=== PATIENT | female | born 1985 | race Caucasian/White ===

== ENCOUNTER 2016-07-01 15:04 | Emergency (ER) | payer MEDICAID, OTHER, SELFPAY ==
[2016-07-01] MEDS ORDERED: Sodium Chloride 0.9% 1,000 ML IV ONE (15:46)
[2016-07-01] MEDS ORDERED: Sodium Chloride 0.9% 10 ML Syringe FLUSH PRN (15:46)
[2016-07-01] MEDS ORDERED: Metoclopramide 10 MG/2 ML SDV IVPUSH ONE (15:47)
[2016-07-01] MEDS ORDERED: Ketorolac 30 MG/ML SDV IVPUSH ONE (15:47)
--- NOTE | 2016-07-01 17:00 | EDM.PDOC ---
ED HPI GENERAL MEDICAL PROBLEM - General Stated Complaint: MIGRAINE Time Seen by Provider: 07/01/16 16:00 Source of Information: Reports: Patient History Limitations: Reports: No limitations - History of Present Illness INITIAL COMMENTS - FREE TEXT/NARRATIVE: c/o UMANZRO since 8:30 AM a lot of drama with crying out in a loud voice for 20 minutes, put in a room right away, promptly fell asleep after being given 10 mg Reglan IV and 30 mg Toradol IV, IVFs are currently running has frequent ED visits with HAs - Related Data Allergies Allergy/AdvReac Type Severity Reaction Status Date / Time erythromycin base Allergy Itching Verified 05/30/16 23:20 [Erythromycin Base] tramadol Allergy Respiratory Verified 05/30/16 23:20 Depression Home Meds: Home Meds NK [No Known Home Meds] 04/20/16 [History] Past Medical History - Past Health History Medical/Surgical History: Denies Medical/Surgical History HEENT History: Reports: Impaired vision [employer] History: Reports: Musculoskeletal History: Reports: Back pain, chronic Neurological History: Reports: Seizure Other Neuro History: states having 8 year hx of seizures, takes no meds, says she was here 2 weeks ago with same thing. PSEUDOSEIZURES Psychiatric History: Reports: Addiction, Anxiety, Depression, Psych Hospitalization(s), Suicide attempt Dermatologic History: Reports: Other (see below) Other Dermatologic History: has acne on face - Infectious Disease History Infectious Disease History: Reports: Chicken pox - Past Surgical History HEENT Surgical History: Reports: Eye surgery, Tonsillectomy Other HEENT Surgeries/Procedures: L eye surgery Musculoskeletal Surgical History: Reports: None Social & Family History - Family History Family Medical History: Noncontributory - Tobacco Use Smoking Status *Q: Current Every Day Smoker Years of Tobacco use: 14 Packs/Tins Daily: 1 Used Tobacco, but Quit: No Second Hand Smoke Exposure: Yes - Alcohol Use Days Per Week of Alcohol Use: 2 Number of Drinks Per Day: 4 Total Drinks Per Week: 8 - Recreational Drug Use Recreational Drug Use: Yes Drug Use in Last 12 Months: Yes Recreational Drug Type: Reports: Marijuana/Hashish Recreational Drug Use Frequency: Weekly Recreational Drug Last Use: last week - Living Situation & Occupation Living situation: Reports: Occupation: unemployed ED ROS GENERAL - Review of Systems Review Of Systems: See Below Constitutional: Reports: no symptoms HEENT: Reports: No symptoms Respiratory: Reports: no symptoms Cardiovascular: Reports: No symptoms Endocrine: Reports: no symptoms GI/Abdominal: Reports: No symptoms : Reports: no symptoms Musculoskeletal: Reports: no symptoms Skin: Reports: no symptoms Neurological: Reports: headache Psychiatric: Reports: Agitation Hematologic/Lymphatic: Reports: no symptoms Immunologic: Reports: no symptoms ED EXAM, GENERAL - Physical Exam Exam: See Below Exam Limited By: No limitations General Appearance: alert, WD/WN, no apparent distress, other (sleeping quietly) Eye Exam: bilateral eye: normal inspection Ears: normal external exam Nose: normal inspection Head: atraumatic, normocephalic Neck: normal inspection, other (no LNs) Respiratory/Chest: no respiratory distress, lungs clear, normal breath sounds, no accessory muscle use Cardiovascular: regular rate, rhythm, no edema, no rub GI/Abdominal: soft, non tender, no distention Back Exam: normal inspection, full range of motion Extremities: normal inspection, normal range of motion, normal capillary refill Psychiatric: anxious Skin Exam: Warm, Dry, Intact, Normal color, No rash Lymphatic: no adenopathy Course - Orders/Labs/Meds Orders: Active Orders 24 hr Category Date Time Status Sodium Chloride 0.9% [Saline Flush] Med 07/01/16 15:46 Active 10 ml FLUSH ASDIRECTED PRN Saline Lock Insert [OM.PC] Routine Oth 07/01/16 15:46 Ordered Medication Orders Sodium Chloride (Saline Flush) 10 ml FLUSH ASDIRECTED PRN PRN Reason: Keep Vein Open Meds: Medications Generic Name Dose Route Start Last Admin Trade Name Freq PRN Reason Stop Dose Admin Sodium Chloride 10 ml 07/01/16 15:46 Saline Flush FLUSH ASDIRECTED PRN Keep Vein Open Discontinued Medications Generic Name Dose Route Start Last Admin Trade Name Freq PRN Reason Stop Dose Admin Sodium Chloride 1,000 mls @ 999 mls/hr 07/01/16 15:46 07/01/16 16:35 Normal Saline IV 07/01/16 16:46 999 mls/hr .BOLUS ONE Administration Ketorolac Tromethamine 30 mg 07/01/16 15:47 07/01/16 16:35 Toradol IVPUSH 07/01/16 15:48 30 mg ONETIME ONE Administration Metoclopramide HCl 10 mg 07/01/16 15:47 07/01/16 16:35 Reglan IVPUSH 07/01/16 15:48 10 mg ONETIME ONE Administration Departure - Departure Time of Disposition: 17:03 Disposition: Home, Self-Care 01 Condition: good Clinical Impression: Head ache Qualifiers: Headache type: tension-type Headache chronicity pattern: chronic headache Intractability: not intractable Qualified Code(s): G44.229 - Chronic tension- type headache, not intractable Additional Instructions: Rest. Use ice packs for 15 minutes for recurrent headache. Take ibuprofen 200 mg 3 tabs and acetaminophen 325 mg 2 tabs every 6 hours for 4 doses to prevent rebound headache. Call your Physician or Return to Emergency Department if: * Your condition worsens in any way. * You develop fever greater than 100.4. * You have vomitting that does not stop with medications. * You have pain that is not controlled with medications. - My Orders Last 24 Hours: My Active Orders 07/01/16 15:46 Sodium Chloride 0.9% [Saline Flush] 10 ml FLUSH ASDIRECTED PRN Saline Lock Insert [OM.PC] Routine - Assessment/Plan Last 24 Hours: My Active Orders 07/01/16 15:46 Sodium Chloride 0.9% [Saline Flush] 10 ml FLUSH ASDIRECTED PRN Saline Lock Insert [OM.PC] Routine
[2016-07-01 20:07] VITALS: BP 111/77
== END 2016-07-01 17:45 | disposition home or self-care (01) ==
LOC: FB.ED 15:04
DX: G44.229 Chronic tension-type headache, not intractable (principal); F41.9 Anxiety disorder, unspecified; F32.9 Major depressive disorder, single episode, unspecified; F17.210 Nicotine dependence, cigarettes, uncomplicated; Z98.890 Other specified postprocedural states; Z88.5 Allergy status to narcotic agent; Z88.1 Allergy status to other antibiotic agents
CPT/HCPCS: 96361; 96374; 96375; 99282; J1885; J2765; J7040; J7050